=== PATIENT | female | born 1940 | race Caucasian/White ===

== ENCOUNTER 2016-10-26 15:09 | Outpatient (CLI) | payer OTHER | END 2016-10-26 15:10 | disposition home or self-care (01) | DX: I48.91 Unspecified atrial fibrillation (principal) ==

== ENCOUNTER 2016-11-29 15:06 | Outpatient (CLI) | payer OTHER | END 2016-11-29 15:07 | disposition home or self-care (01) | DX: I48.91 Unspecified atrial fibrillation (principal); I10 Essential (primary) hypertension ==

== ENCOUNTER 2016-12-06 15:24 | Outpatient (CLI) | payer OTHER | END 2016-12-06 15:25 | disposition home or self-care (01) | DX: I48.91 Unspecified atrial fibrillation (principal) ==

== ENCOUNTER 2016-12-21 15:49 | Outpatient (CLI) | payer OTHER | END 2016-12-21 23:59 | disposition home or self-care (01) | DX: I48.91 Unspecified atrial fibrillation (principal) ==

== ENCOUNTER 2017-01-17 14:33 | Outpatient (CLI) | payer OTHER | END 2017-01-17 14:34 | disposition home or self-care (01) | DX: I48.91 Unspecified atrial fibrillation (principal) ==

== ENCOUNTER 2017-01-21 14:15 | Outpatient (CLI) | payer OTHER | END 2017-01-21 14:16 | disposition home or self-care (01) | DX: M17.12 Unilateral primary osteoarthritis, left knee (principal) ==

== ENCOUNTER 2017-04-17 15:15 | Outpatient (CLI) | payer OTHER | END 2017-04-17 15:16 | disposition home or self-care (01) | LOC: LAB.F 15:15 | PROVIDERS: ATTEND Registered Nurse | DX: I48.91 Unspecified atrial fibrillation (principal) | CPT/HCPCS: 85610 ==

== ENCOUNTER 2017-05-01 14:41 | Outpatient (CLI) | payer OTHER | END 2017-05-01 14:42 | disposition home or self-care (01) | LOC: LAB.F 14:41 | PROVIDERS: ATTEND Registered Nurse | DX: I48.91 Unspecified atrial fibrillation (principal) | CPT/HCPCS: 85610 ==

== ENCOUNTER 2017-05-23 14:28 | Outpatient (CLI) | payer OTHER | END 2017-05-23 14:29 | disposition home or self-care (01) | LOC: LAB.F 14:28 | PROVIDERS: ATTEND Registered Nurse | DX: I48.91 Unspecified atrial fibrillation (principal) | CPT/HCPCS: 85610 ==

== ENCOUNTER 2017-05-31 13:52 | Outpatient (CLI) | payer OTHER | END 2017-05-31 13:53 | disposition home or self-care (01) | LOC: LAB.F 13:52 | PROVIDERS: ATTEND Registered Nurse | DX: I48.91 Unspecified atrial fibrillation (principal) | CPT/HCPCS: 85610 ==

== ENCOUNTER 2017-06-04 15:24 | Outpatient (CLI) | payer OTHER ==
--- NOTE | 2017-06-05 09:51 | XRAY Report ---
TWO VIEW CHEST: 06/04/2017 CLINICAL INDICATION: Chronic cough, new hemoptysis. COMPARISON: 07/03/2015. FINDINGS: Frontal and lateral views of the chest demonstrate a normal cardiac silhouette. The lungs are hyperinflated, with changes of old granulomatous disease. No focal consolidation, effusion, or pn eumothorax is evident. IMPRESSION: COPD. CHANGES OF OLD GRANULOMATOUS DISEASE. NO EVIDENCE OF ACUTE CARDIOPULMONARY DISEASE . JOB #: [id number] EXT JOB #:[id number]
== END 2017-06-04 15:25 | disposition home or self-care (01) ==
LOC: DI 15:24
PROVIDERS: ATTEND Registered Nurse
DX: J44.9 Chronic obstructive pulmonary disease, unspecified (principal)
CPT/HCPCS: 71020

== ENCOUNTER 2017-06-14 12:23 | Outpatient (CLI) | payer OTHER ==
[2017-06-14 12:30] LABS: CREATININE 0.9 mg/dL (0.4-1.0)
[2017-06-14] MEDS ORDERED: IOPAMIDOL-300 100 ML VIAL ONE (12:51)
[2017-06-14] MEDS ORDERED: IOPAMIDOL-300 100 ML VIAL IVP ONE ×2 (13:16)
--- NOTE | 2017-06-14 14:31 | CT Report ---
CT CHEST WITH CONTRAST: 06/14/2017 CLINICAL INDICATION: Hemoptysis, chronic cough, history of tobacco use. TECHNIQUE: Axial CT images of the chest were obtained with 80 mL of Isovue-300 intravenously. No pr evious CT is available for comparison. In accordance with CT protocol optimization, one or more of the following dose reduction techniques w ere utilized for this exam: automated exposure control, adjustment of mA and/or KV based on patient size, or use of iterative reconstructive technique. FINDINGS: The heart and great vessels demonstrate atherosclerotic calcifications. No hilar or media stinal lymphadenopathy is present. Calcified granulomas are noted. No noncalcified pulmonary nodule or mass lesion is appreciated. Emphysematous changes are present. No effusion or pneumothorax is s een. Osseous structures demonstrate degenerative changes. Limited evaluation of upper abdominal str uctures demonstrates normal adrenal glands. Renal cysts and left lumbar hernia are incidentally note d. IMPRESSION: EMPHYSEMA AND CHANGES OF OLD GRANULOMATOUS DISEASE. NO SUSPICIOUS PULMONARY NODULE OR M ASS LESION IS APPRECIATED. JOB #: [id number] EXT JOB #:[id number]
== END 2017-06-14 12:24 | disposition home or self-care (01) ==
LOC: LAB 12:23
PROVIDERS: ATTEND Registered Nurse
DX: J43.9 Emphysema, unspecified (principal)
CPT/HCPCS: 36415; 71260; 82565; 85610; Q9967

== ENCOUNTER 2017-07-17 14:19 | Outpatient (CLI) | payer OTHER | END 2017-07-17 14:20 | disposition home or self-care (01) | LOC: LAB.F 14:19 | PROVIDERS: ATTEND Registered Nurse | DX: I48.91 Unspecified atrial fibrillation (principal) | CPT/HCPCS: 85610 ==

== ENCOUNTER 2017-09-06 14:38 | Outpatient (CLI) | payer OTHER | END 2017-09-06 14:39 | disposition home or self-care (01) | LOC: LAB.F 14:38 | PROVIDERS: ATTEND Registered Nurse | DX: I48.91 Unspecified atrial fibrillation (principal) | CPT/HCPCS: 85610 ==

== ENCOUNTER 2017-10-30 14:37 | Outpatient (CLI) | payer OTHER | END 2017-10-30 14:38 | disposition home or self-care (01) | LOC: LAB.F 14:37 | PROVIDERS: ATTEND Registered Nurse | DX: I48.91 Unspecified atrial fibrillation (principal) | CPT/HCPCS: 85610 ==

== ENCOUNTER 2017-11-19 15:21 | Outpatient (CLI) | payer OTHER | END 2017-11-19 15:22 | disposition home or self-care (01) | LOC: LAB.F 15:21 | PROVIDERS: ATTEND Registered Nurse | DX: I48.91 Unspecified atrial fibrillation (principal) | CPT/HCPCS: 85610 ==

== ENCOUNTER 2017-12-27 15:39 | Outpatient (CLI) | payer OTHER | END 2017-12-27 15:40 | disposition home or self-care (01) | LOC: LAB.F 15:39 | PROVIDERS: ATTEND Registered Nurse | DX: I48.91 Unspecified atrial fibrillation (principal) | CPT/HCPCS: 85610 ==

== ENCOUNTER 2018-01-07 14:55 | Outpatient (CLI) | payer OTHER | END 2018-01-07 14:56 | disposition home or self-care (01) | LOC: LAB.F 14:55 | PROVIDERS: ATTEND Registered Nurse | DX: I48.91 Unspecified atrial fibrillation (principal) | CPT/HCPCS: 85610 ==

== ENCOUNTER 2018-01-15 14:35 | Outpatient (CLI) | payer OTHER | END 2018-01-15 14:36 | disposition home or self-care (01) | LOC: LAB.F 14:35 | PROVIDERS: ATTEND Registered Nurse | DX: I48.91 Unspecified atrial fibrillation (principal) | CPT/HCPCS: 85610 ==

== ENCOUNTER 2018-02-19 14:43 | Outpatient (CLI) | payer OTHER | END 2018-02-19 14:44 | disposition home or self-care (01) | LOC: LAB.F 14:43 | PROVIDERS: ATTEND Registered Nurse | DX: I48.91 Unspecified atrial fibrillation (principal) | CPT/HCPCS: 85610 ==

== ENCOUNTER 2018-04-01 13:48 | Outpatient (CLI) | payer OTHER | END 2018-04-01 13:49 | disposition home or self-care (01) | LOC: LAB.F 13:48 | PROVIDERS: ATTEND Registered Nurse | DX: I48.91 Unspecified atrial fibrillation (principal) | CPT/HCPCS: 85610 ==

== ENCOUNTER 2018-04-10 14:49 | Outpatient (CLI) | payer OTHER | END 2018-04-10 14:50 | disposition home or self-care (01) | LOC: LAB.F 14:49 | PROVIDERS: ATTEND Registered Nurse | DX: I48.91 Unspecified atrial fibrillation (principal) | CPT/HCPCS: 85610 ==

== ENCOUNTER 2018-05-14 14:32 | Outpatient (CLI) | payer OTHER ==
[2018-05-14 18:20] LABS: ALBUMIN 4.1 g/dL (3.2-5.5); ALBUMIN/GLOBULIN RATIO 1.3 (1.0-2.2); ALKALINE PHOSPHATASE 51 IU/L (42-121); ALT ALANINE AMINOTRANSFERASE 19 IU/L (10-60); AST ASPARTATE AMINOTRANSFERASE 26 IU/L (10-42); BILIRUBIN,TOTAL 0.5 mg/dL (0.2-1.0); BUN - BLOOD UREA NITROGEN 15 mg/dL (6-20); CARBON DIOXIDE - CO2 29 mmol/L (21-32); CHLORIDE 93 mmol/L (101-111); CHOL/HDL RATIO 2.2 (<4.4); CHOLESTEROL 175 mg/dL; GFR - MDRD 54 (>89); GLUCOSE 156 mg/dL (70-100); HDL CHOLESTEROL 79 mg/dL; LDL CHOLESTEROL,CALCULATED 65 mg/dL; LDL/HDL RATIO 0.8 (<4.4); SODIUM 129 mmol/L (135-145); TOTAL PROTEIN 7.3 g/dL (6.7-8.2); VLDL CHOLESTEROL 31 mg/dL
== END 2018-05-14 14:33 | disposition home or self-care (01) ==
LOC: LAB.F 14:32
PROVIDERS: ATTEND Registered Nurse
DX: I10 Essential (primary) hypertension (principal); E78.5 Hyperlipidemia, unspecified; R53.83 Other fatigue; I48.91 Unspecified atrial fibrillation
CPT/HCPCS: 36415; 80053; 80061; 83721; 84443; 85610

== ENCOUNTER 2018-06-12 14:37 | Outpatient (CLI) | payer OTHER | END 2018-06-12 14:38 | disposition home or self-care (01) | LOC: LAB.F 14:37 | PROVIDERS: ATTEND Registered Nurse | DX: I48.91 Unspecified atrial fibrillation (principal) | CPT/HCPCS: 85610 ==

== ENCOUNTER 2018-07-18 14:29 | Outpatient (CLI) | payer OTHER | END 2018-07-18 14:30 | disposition home or self-care (01) | LOC: LAB.F 14:29 | PROVIDERS: ATTEND Registered Nurse | DX: I48.91 Unspecified atrial fibrillation (principal) | CPT/HCPCS: 85610 ==

== ENCOUNTER 2018-08-26 14:31 | Outpatient (CLI) | payer OTHER | END 2018-08-26 14:32 | disposition home or self-care (01) | LOC: LAB.F 14:31 | PROVIDERS: ATTEND Registered Nurse | DX: I48.91 Unspecified atrial fibrillation (principal) | CPT/HCPCS: 85610 ==

== ENCOUNTER 2018-10-09 13:53 | Outpatient (CLI) | payer OTHER | END 2018-10-09 13:54 | disposition home or self-care (01) | LOC: LAB.F 13:53 | PROVIDERS: ATTEND Registered Nurse | DX: I48.91 Unspecified atrial fibrillation (principal) | CPT/HCPCS: 85610 ==

== ENCOUNTER 2018-10-15 14:07 | Outpatient (CLI) | payer OTHER | END 2018-10-15 14:08 | disposition home or self-care (01) | LOC: LAB.F 14:07 | PROVIDERS: ATTEND Registered Nurse | DX: I48.91 Unspecified atrial fibrillation (principal) | CPT/HCPCS: 85610 ==

== ENCOUNTER 2018-10-23 14:13 | Outpatient (CLI) | payer OTHER | END 2018-10-23 14:14 | disposition home or self-care (01) | LOC: LAB.F 14:13 | PROVIDERS: ATTEND Registered Nurse | DX: I48.91 Unspecified atrial fibrillation (principal) | CPT/HCPCS: 85610 ==

== ENCOUNTER 2018-11-20 13:18 | Outpatient (CLI) | payer OTHER | END 2018-11-20 13:19 | disposition home or self-care (01) | LOC: LAB.F 13:18 | PROVIDERS: ATTEND Registered Nurse | DX: I48.91 Unspecified atrial fibrillation (principal) | CPT/HCPCS: 85610 ==

== ENCOUNTER 2018-12-23 08:00 | Outpatient (CLI) | payer OTHER | END 2018-12-23 23:59 | disposition home or self-care (01) | LOC: LAB.F 08:00 | PROVIDERS: ATTEND Registered Nurse | DX: I48.91 Unspecified atrial fibrillation (principal) | CPT/HCPCS: 85610 ==

== ENCOUNTER 2019-01-23 14:48 | Outpatient (CLI) | payer OTHER | END 2019-01-23 14:49 | disposition home or self-care (01) | LOC: LAB.F 14:48 | PROVIDERS: ATTEND Registered Nurse | DX: I48.91 Unspecified atrial fibrillation (principal) | CPT/HCPCS: 85610 ==

== ENCOUNTER 2019-03-05 14:32 | Outpatient (CLI) | payer OTHER | END 2019-03-05 14:33 | disposition home or self-care (01) | LOC: LAB.F 14:32 | PROVIDERS: ATTEND Registered Nurse | DX: I48.91 Unspecified atrial fibrillation (principal) | CPT/HCPCS: 85610 ==

== ENCOUNTER 2019-04-20 14:56 | Outpatient (CLI) | payer OTHER | END 2019-04-20 14:57 | disposition home or self-care (01) | LOC: LAB.S 14:56 | PROVIDERS: ATTEND Registered Nurse | DX: I48.91 Unspecified atrial fibrillation (principal) | CPT/HCPCS: 85610 ==

== ENCOUNTER 2019-06-04 15:12 | Outpatient (CLI) | payer OTHER | END 2019-06-04 15:13 | disposition home or self-care (01) | LOC: LAB.S 15:12 | PROVIDERS: ATTEND Registered Nurse | DX: I48.91 Unspecified atrial fibrillation (principal) | CPT/HCPCS: 85610 ==

== ENCOUNTER 2019-07-15 15:09 | Outpatient (CLI) | payer OTHER | END 2019-07-15 15:10 | disposition home or self-care (01) | LOC: LAB.S 15:09 | PROVIDERS: ATTEND Registered Nurse | DX: I48.91 Unspecified atrial fibrillation (principal) | CPT/HCPCS: 85610 ==

== ENCOUNTER 2019-08-19 14:28 | Outpatient (CLI) | payer OTHER | END 2019-08-19 23:59 | disposition home or self-care (01) | LOC: LAB.S 14:28 | PROVIDERS: ATTEND Registered Nurse | DX: I48.91 Unspecified atrial fibrillation (principal) | CPT/HCPCS: 85610 ==

== ENCOUNTER 2019-09-17 09:04 | Outpatient (CLI) | payer OTHER | END 2019-09-17 09:05 | disposition home or self-care (01) | LOC: LAB 09:04 | PROVIDERS: ATTEND Registered Nurse | DX: I48.91 Unspecified atrial fibrillation (principal) | CPT/HCPCS: 85610 ==

== ENCOUNTER 2019-10-28 14:23 | Outpatient (CLI) | payer OTHER | END 2019-10-28 14:24 | disposition home or self-care (01) | LOC: LAB.S 14:23 | PROVIDERS: ATTEND Registered Nurse | DX: I48.91 Unspecified atrial fibrillation (principal) | CPT/HCPCS: 85610 ==

== ENCOUNTER 2019-11-20 14:15 | Outpatient (CLI) | payer OTHER | END 2019-11-20 14:16 | disposition home or self-care (01) | LOC: LAB 14:15 | PROVIDERS: ATTEND Registered Nurse | DX: I48.91 Unspecified atrial fibrillation (principal) | CPT/HCPCS: 85610 ==

== ENCOUNTER 2020-04-21 14:34 | Outpatient (CLI) | payer OTHER ==
[2020-04-21 19:51] LABS: PT - PROTHROMBIN TIME 22.2 secs (9.9-12.6)
== END 2020-04-21 14:35 | disposition home or self-care (01) ==
LOC: LAB.S 14:34
PROVIDERS: ATTEND Registered Nurse
DX: I48.91 Unspecified atrial fibrillation (principal)
CPT/HCPCS: 36415; 85610

== ENCOUNTER 2020-08-24 14:51 | Outpatient (CLI) | payer OTHER | END 2020-08-24 14:52 | disposition home or self-care (01) | LOC: LAB.S 14:51 | PROVIDERS: ATTEND Registered Nurse | DX: I48.91 Unspecified atrial fibrillation (principal) | CPT/HCPCS: 85610 ==

== ENCOUNTER 2020-10-04 14:24 | Outpatient (CLI) | payer OTHER | END 2020-10-04 14:25 | disposition home or self-care (01) | LOC: LAB.S 14:24 | PROVIDERS: ATTEND Registered Nurse | DX: I48.91 Unspecified atrial fibrillation (principal) | CPT/HCPCS: 85610 ==

== ENCOUNTER 2020-11-01 15:44 | Outpatient (CLI) | payer OTHER | END 2020-11-01 15:45 | disposition home or self-care (01) | LOC: LAB.S 15:44 | PROVIDERS: ATTEND Registered Nurse | DX: I48.91 Unspecified atrial fibrillation (principal) | CPT/HCPCS: 85610 ==

== ENCOUNTER 2020-11-09 15:00 | Outpatient (CLI) | payer OTHER | END 2020-11-09 15:01 | disposition home or self-care (01) | LOC: LAB.S 15:00 | PROVIDERS: ATTEND Registered Nurse | DX: I48.91 Unspecified atrial fibrillation (principal) | CPT/HCPCS: 85610 ==

== ENCOUNTER 2020-12-02 14:23 | Outpatient (CLI) | payer OTHER | END 2020-12-02 14:24 | disposition home or self-care (01) | LOC: LAB.S 14:23 | PROVIDERS: ATTEND Registered Nurse | DX: I48.91 Unspecified atrial fibrillation (principal) | CPT/HCPCS: 85610 ==

== ENCOUNTER 2020-12-15 15:08 | Outpatient (CLI) | payer MEDICARE, OTHER | END 2020-12-15 15:09 | disposition home or self-care (01) | LOC: LAB.S 15:08 | PROVIDERS: ATTEND Registered Nurse | DX: I48.91 Unspecified atrial fibrillation (principal) | CPT/HCPCS: 85610 ==

== ENCOUNTER 2021-02-05 15:16 | Outpatient (CLI) | payer MEDICARE | END 2021-02-05 15:17 | disposition home or self-care (01) | LOC: LAB.S 15:16 | PROVIDERS: ATTEND Registered Nurse | DX: I48.91 Unspecified atrial fibrillation (principal) | CPT/HCPCS: 36416; 85610 ==

== ENCOUNTER 2021-04-05 14:06 | Outpatient (CLI) | payer MEDICARE ==
[2021-04-05 20:08] LABS: BASOPHILS # (AUTO) 0.1 10^3/uL (0.0-0.1); BASOPHILS % (AUTO) 1.1 %; EOSINOPHILS # (AUTO) 0.1 10^3/uL (0.0-0.7); EOSINOPHILS % (AUTO) 0.7 %; HGB - HEMOGLOBIN 15.5 g/dL (12.0-16.0); LYMPHOCYTES # (AUTO) 2.1 10^3/uL (1.5-3.5); LYMPHOCYTES % (AUTO) 28.4 %; MEAN CORPUSCULAR HEMOGLOBIN 31.6 pg (27.0-31.0); MEAN CORPUSCULAR HGB CONC 33.7 g/dL (32.0-36.0); MEAN CORPUSCULAR VOLUME 93.9 fL (81.0-99.0); MEAN PLATELET VOLUME 9.8 fL (7.9-10.8); MONOCYTES # (AUTO) 0.7 10^3/uL (0.0-1.0); MONOCYTES % (AUTO) 10.1 %; NEUTROPHILS # (AUTO) 4.3 10^3/uL (1.5-6.6); NEUTROPHILS % (AUTO) 59.4 %; PLT - PLATELET COUNT 333 10^3/uL (130-450); RED CELL DISTRIBUTION WIDTH 11.9 % (12.0-15.0); WHITE BLOOD COUNT 7.3 x10^3/uL (4.8-10.8)
[2021-04-05 20:23] LABS: ALBUMIN 3.9 g/dL (3.2-5.5); ALBUMIN/GLOBULIN RATIO 1.3 (1.0-2.2); BILIRUBIN,TOTAL 0.9 mg/dL (0.2-1.0); CALCIUM 9.3 mg/dL (8.5-10.3); CREATININE 0.7 mg/dL (0.4-1.0); POTASSIUM 4.1 mmol/L (3.5-5.0)
[2021-04-05 20:39] LABS: ESTIMATED AVERAGE GLUCOSE 108 mg/dL (70-100); HEMOGLOBIN A1c% 5.4 % (4.27-6.07)
[2021-04-05 20:40] LABS: THYROID STIMULATING HORMONE 3.3 uIU/mL (0.34-5.60)
[2021-04-05 20:52] LABS: FOLATE 5.97 ng/mL (5.90 - >24.8)
[2021-04-08 17:42] LABS: ALBUMIN 3.8 g/dL (3.8-4.8); ALPHA 1 GLOBULIN 0.3 g/dL (0.2-0.3); ALPHA 2 GLOBULIN 0.9 g/dL (0.5-0.9); BETA 1 GLOBULIN 0.4 g/dL (0.4-0.6); BETA 2 GLOBULIN 0.3 g/dL (0.2-0.5); GAMMA GLOBULIN 0.9 g/dL (0.8-1.7)
== END 2021-04-05 14:07 | disposition home or self-care (01) ==
LOC: LAB.S 14:06
PROVIDERS: ATTEND Registered Nurse
DX: I48.91 Unspecified atrial fibrillation (principal); G60.9 Hereditary and idiopathic neuropathy, unspecified; F10.10 Alcohol abuse, uncomplicated; R63.0 Anorexia
CPT/HCPCS: 36415; 80053; 82150; 82607; 82746; 82977; 83036; 83690; 84155; 84165; 84443; 85025; 85610

== ENCOUNTER 2021-05-04 14:35 | Outpatient (CLI) | payer MEDICARE | END 2021-05-04 14:36 | disposition home or self-care (01) | LOC: LAB.S 14:35 | PROVIDERS: ATTEND Registered Nurse | DX: I48.91 Unspecified atrial fibrillation (principal) | CPT/HCPCS: 36416; 85610 ==

== ENCOUNTER 2021-05-15 15:15 | Outpatient (CLI) | payer MEDICARE | END 2021-05-15 15:16 | disposition home or self-care (01) | LOC: LAB.S 15:15 | PROVIDERS: ATTEND Family Medicine | DX: I48.91 Unspecified atrial fibrillation (principal) | CPT/HCPCS: 36416; 85610 ==

== ENCOUNTER 2021-06-22 14:33 | Outpatient (CLI) | payer MEDICARE | END 2021-06-22 14:34 | disposition home or self-care (01) | LOC: LAB.S 14:33 | PROVIDERS: ATTEND Registered Nurse | DX: I48.91 Unspecified atrial fibrillation (principal) | CPT/HCPCS: 36416; 85610 ==

== ENCOUNTER 2021-07-26 14:28 | Outpatient (CLI) | payer MEDICARE, OTHER | END 2021-07-26 14:29 | disposition home or self-care (01) | LOC: LAB.S 14:28 | PROVIDERS: ATTEND Registered Nurse | DX: I48.91 Unspecified atrial fibrillation (principal) | CPT/HCPCS: 36416; 85610 ==

== ENCOUNTER 2021-10-24 14:01 | Outpatient (CLI) | payer MEDICARE, OTHER | END 2021-10-24 14:02 | disposition home or self-care (01) | LOC: LAB.S 14:01 | PROVIDERS: ATTEND Registered Nurse | DX: I48.91 Unspecified atrial fibrillation (principal) | CPT/HCPCS: 36416; 85610 ==

== ENCOUNTER 2022-02-22 11:17 | Outpatient (CLI) | payer OTHER | END 2022-02-22 11:18 | disposition home or self-care (01) | LOC: LAB.S 11:17 | PROVIDERS: ATTEND Registered Nurse | DX: I48.91 Unspecified atrial fibrillation (principal) | CPT/HCPCS: 36416; 85610 ==

== ENCOUNTER 2023-03-22 01:22 | Outpatient (CLI) | payer OTHER | END 2023-03-22 23:59 | disposition critical access hospital (66) | LOC: EMS 01:22 | DX: S09.90XA Unspecified injury of head, initial encounter (principal); W18.39XA Other fall on same level, initial encounter; Y92.008 Other place in unspecified non-institutional (private) residence as the place of occurrence of the external cause | CPT/HCPCS: A0425; A0429 ==

== ENCOUNTER 2023-03-22 01:51 | Emergency (ER) | payer OTHER ==
--- NOTE | 2023-03-22 01:48 | ED Physician Documentation ---
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 She isn't certain what caused her to fall, but thinks it was due to loss of balance. She says she frequently falls and this is not new for her. She felt she was too weak to get back up (generalized weakness, mostly in legs, but symmetric) and thus the delay in getting to her phone to call 911. She was eventually able to crawl to the phone to call. FSBS by EMS 80, FAST exam negative by EMS. Patient had two glasses of wine at approximately 7 PM. She struck her head on side of the sink but denies LOC. She denies generalized headache but has pain focal to right parietotemperal scalp where she struck the sink. Her medications include warfarin (for atrial fibrillation). Denies neck pain. Review of Systems Eyes: denies: Loss of vision, Decreased vision Cardiac: reports: Reviewed and negative Respiratory: reports: Reviewed and negative GI: reports: Reviewed and negative Neurologic: reports: Generalized weakness, Head injury. denies: Focal weakness, Numbness, Headache, LOC PD PAST MEDICAL HISTORY - Past Medical History Past Medical History: Yes Cardiovascular: Hypertension, High cholesterol, Atrial fibrillation GI: GERD - Present Medications Home Medications: Ambulatory Orders Medication Instructions Recorded Confirmed Losartan [Cozaar] 100 mg PO DAILY 05/02/15 07/01/15 Lovastatin 40 mg PO DAILY 05/02/15 07/01/15 Metoprolol Succinate [Toprol Xl] 100 mg PO DAILY 05/02/15 07/01/15 Omeprazole [PriLOSEC] 20 mg PO DAILY 05/02/15 07/01/15 Aspirin [Adult Low Dose Aspirin EC] 81 mg PO DAILY 07/01/15 07/01/15 - Allergies Allergies/Adverse Reactions: Allergies Allergy/AdvReac Type Severity Reaction Status Date / Time hydrocodone AdvReac Intermediate Nausea Verified 03/22/23 02:01 PD ED PE NORMAL - Vitals Vital signs reviewed: Yes - General General: Alert and oriented X 3, No acute distress, Well developed/nourished, Other (cervical collar in place) - HEENT HEENT: PERRL, EOMI, Other (tacky mucous membranes) - Cardiac Cardiac: No murmur - Respiratory Respiratory: No respiratory distress, Clear bilaterally - Abdomen Abdomen: Soft, Non tender - Back Back: No spinal TTP - Extremities Extremities: No deformity, No tenderness to palpate, Normal ROM s pain - Neuro Neuro: Alert and oriented X 3, 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, No motor deficit, No sensory deficit, Normal speech Eye Opening: Spontaneous Motor: Obeys Commands Verbal: Oriented GCS Score: 15 PD ED PE EXPANDED - HEENT HEENT Visual: 1 - bruising, swelling, tenderness - Cardiac Cardiac: Irregularly irregular Results - Vitals Vitals: Vital Signs - 24 hr 03/22/23 03/22/23 03/22/23 01:55 04:01 06:00 Temperature 36.8 C Heart Rate 64 55 L 55 L Respiratory 16 18 16 Rate Blood Pressure 160/59 H 129/52 L 181/86 H O2 Saturation 96 96 98 Oxygen O2 Source [Without Activity] Room air O2 Source Room air - EKG (time done) No standard instances EKG releavant findings:: EKG personally interpreted by author of this note. Relevant findings are: Rate: Rate (enter#) (56) Rhythm: Atrial fibrillation Ada: Normal Ischemia: ST depression (V3-V6), Q waves (V1-V3) - Labs Labs: Laboratory Tests 03/22/23 03/22/23 03/22/23 01:57 01:57 01:57 WBC 6.2 RBC 3.88 L Hgb 12.9 Hct 37.5 MCV 96.6 MCH 33.2 H MCHC 34.4 RDW 11.9 L Plt Count 271 MPV 8.9 Neut # (Auto) 3.3 Lymph # (Auto) 2.1 Sherman # (Auto) 0.7 Eos # (Auto) 0.1 Baso # (Auto) 0.0 Absolute Nucleated RBC 0.00 Nucleated RBC % 0.0 PT 34.6 H INR 3.3 H Sodium 129 L Potassium 3.5 Chloride 93 L Carbon Dioxide 22 Anion Gap 14.0 H BUN 11 Creatinine 0.9 Estimated GFR (MDRD) 60 L Glucose 91 Calcium 8.0 L Total Bilirubin 0.6 AST 64 H ALT 32 Alkaline Phosphatase 54 Troponin I High Sens Total Protein 6.7 Albumin 3.5 Globulin 3.2 Albumin/Globulin Ratio 1.1 Lipase 31 Urine Color Urine Clarity Urine pH Ur Specific [place] Urine Protein Urine Glucose (UA) Urine Ketones Urine Occult Blood Urine Nitrite Urine Bilirubin Urine Urobilinogen Ur Leukocyte Esterase Ur Microscopic Review Urine Culture Comments 03/22/23 03/22/23 01:59 06:15 WBC RBC Hgb Hct MCV MCH MCHC RDW Plt Count MPV Neut # (Auto) Lymph # (Auto) Sherman # (Auto) Eos # (Auto) Baso # (Auto) Absolute Nucleated RBC Nucleated RBC % PT INR Sodium Potassium Chloride Carbon Dioxide Anion Gap BUN Creatinine Estimated GFR (MDRD) Glucose Calcium Total Bilirubin AST ALT Alkaline Phosphatase Troponin I High Sens 9.4 Total Protein Albumin Globulin Albumin/Globulin Ratio Lipase Urine Color LIGHT YELLOW Urine Clarity CLEAR Urine pH 6.0 Ur Specific [place] <=1.005 Urine Protein NEGATIVE Urine Glucose (UA) NEGATIVE Urine Ketones NEGATIVE Urine Occult Blood NEGATIVE Urine Nitrite NEGATIVE Urine Bilirubin NEGATIVE Urine Urobilinogen 0.2 (NORMAL) Ur Leukocyte Esterase NEGATIVE Ur Microscopic Review NOT INDICATED Urine Culture Comments NOT INDICATED - Rads (name of study) CTH Relevant Findings:: Prelim report reviewed, See rad report CT cervical spine Relevant Findings:: Prelim report reviewed, See rad report PD Medical Decision Making - ED course Complexity details: reviewed results, re-evaluated patient, considered differential, d/w patient ED course: Normal CBC, no concerning nor diagnostic findings on ER abdominal panel; mild hyponatremia (129), given 1 liter NS (for possible dehydration related to patient reporting she has had poor PO intake all day, but this intervention would likely also improve the sodium level). INR 3.3 and normal UA. Normal hs- cTn. CTH and CT cervical spine without acute findings (DJD, chronic , age- related changes). Results d/w patient, return precautions reviewed. She indicates to me that she has had minimal PO intake all day and thinks she might be dehydrated and thus given 1 liter NS. Subsequently, she was able to ambulate to and from bathroom twice with slow but steady gait. Departure - Departure Disposition: 01 Home, Self Care Clinical Impression: Fall Qualifiers: Encounter type: initial encounter Qualified Code(s): W19.XXXA - Unspecified fall, initial encounter Head contusion Qualifiers: Encounter type: initial encounter Contusion of head detail: scalp Qualified Code(s): S00.03XA - Contusion of scalp, initial encounter Condition: Good Instructions: ED Head Injury Closed Comments: There were no concerning or diagnostic findings on tonight's tests. The blood work shows you have a very mildly low sodium level; while a low sodium level can cause dizziness, it does not appear to be nearly low enough to explain any of your symptoms. The CT scans of your head and neck did not have any acute findings. There was some findings on the CT scan of your head that are expected with age. Similarly, there was a moderate amount of degenerative changes on the CT of the cervical spine, but, again, there were no acute findings such as fracture/break. The cause of your falls is something that you should speak to your primary care provider about. At this time, it is not clear what caused you to fall tonight. Discharge Date/Time: 03/22/23 06:55
[2023-03-22 02:04] LABS: BASOPHILS % (AUTO) 0.6 %; EOSINOPHILS # (AUTO) 0.1 10^3/uL (0.0-0.7); EOSINOPHILS % (AUTO) 1.1 %; HCT - HEMATOCRIT 37.5 % (37.0-47.0); HGB - HEMOGLOBIN 12.9 g/dL (12.0-16.0); LYMPHOCYTES # (AUTO) 2.1 10^3/uL (1.5-3.5); LYMPHOCYTES % (AUTO) 33.1 %; MEAN CORPUSCULAR HEMOGLOBIN 33.2 pg (27.0-31.0); MEAN CORPUSCULAR HGB CONC 34.4 g/dL (32.0-36.0); MEAN CORPUSCULAR VOLUME 96.6 fL (81.0-99.0); MEAN PLATELET VOLUME 8.9 fL (7.9-10.8); MONOCYTES # (AUTO) 0.7 10^3/uL (0.0-1.0); MONOCYTES % (AUTO) 11.6 %; NEUTROPHILS # (AUTO) 3.3 10^3/uL (1.5-6.6); NEUTROPHILS % (AUTO) 53.4 %; PLT - PLATELET COUNT 271 10^3/uL (130-450); RED BLOOD COUNT 3.88 10^6/uL (4.20-5.40); RED CELL DISTRIBUTION WIDTH 11.9 % (12.0-15.0); WHITE BLOOD COUNT 6.2 x10^3/uL (4.8-10.8)
[2023-03-22 02:17] LABS: ALBUMIN 3.5 g/dL (3.2-5.5); ALBUMIN/GLOBULIN RATIO 1.1 (1.0-2.2); BILIRUBIN,TOTAL 0.6 mg/dL (0.2-1.0); CREATININE 0.9 mg/dL (0.4-1.0); POTASSIUM 3.5 mmol/L (3.5-5.0); TOTAL PROTEIN 6.7 g/dL (6.7-8.2)
[2023-03-22 03:18] LABS: INR 3.3 (0.8-1.2); PT - PROTHROMBIN TIME 34.6 secs (9.9-12.6)
[2023-03-22] MEDS ORDERED: SODIUM CHLORIDE 0.9% 1,000 ML IV STA (04:26)
[2023-03-22 06:21] LABS: BILIRUBIN,URINE NEGATIVE (NEGATIVE); GLUCOSE, URINE (UA) NEGATIVE (NEGATIVE); KETONES,URINE (UA) NEGATIVE (NEGATIVE); LEUKOCYTE ESTERASE, URINE NEGATIVE (NEGATIVE); NITRITE,URINE NEGATIVE (NEGATIVE); OCCULT BLOOD,URINE NEGATIVE (NEGATIVE); PROTEIN,URINE NEGATIVE (NEGATIVE); UROBILINOGEN,URINE 0.2 (NORMAL) E.U./dL (NORMAL)
[2023-03-22 06:22] VITALS: BP 181/86
[2023-03-22 06:22] LABS: CLARITY,URINE CLEAR (CLEAR)
--- NOTE | 2023-03-22 08:42 | XRAY Report ---
PROCEDURE: Chest 1 View X-Ray INDICATIONS: chest pain TECHNIQUE: One view of the chest was acquired. COMPARISON: 06/04/2017 FINDINGS: Surgical changes and devices: None. Lungs and pleura: Suspected senescent lung markings and possible obstructive lung disease. No dense consolidation. No pleural effusion. A nodule in the right lower lung field is stable from 2017. Mediastinum: Heart size is at the upper limit of normal. Bones and chest wall: No suspicious bony lesions. Overlying soft tissues appear unremarkable. IMPRESSION: No acute radiographic abnormality. Agree with preliminary report. Reviewed by: Rod Ziegler MD on 03/22/2023 8:40 AM PDT Approved by: Rod Ziegler MD on 03/22/2023 8:40 AM PDT Station ID: [id number]
--- NOTE | 2023-03-22 08:45 | CT Report ---
PROCEDURE: HEAD WO INDICATIONS: fall, head injury, takes warfarin TECHNIQUE: Noncontrast 4.5 mm thick angled axial sections acquired from the foramen magnum to the vertex. For r adiation dose reduction, the following was used: automated exposure control, adjustment of mA and/or kV according to patient size. COMPARISON: Good FINDINGS: Image quality: Good CSF spaces: Basal cisterns are patent. Lateral ventricles are symmetric. Volume: Vascular calcifications. Periventricular white matter disease is commonly seen with chronic m icroangiopathy. Volume loss is present. These findings are moderate. Brain: No intracranial hemorrhage. [place]-white differentiation is grossly maintained. Mild encephalom alacia in the left parietal region. Craniofacial structures: Right scalp hematoma. No displaced fracture. Paranasal sinuses are unremarka ble. IMPRESSION: No acute intracranial abnormality. Small right scalp hematoma. Reviewed by: Rod Ziegler MD on 03/22/2023 8:44 AM PDT Approved by: Rod Ziegler MD on 03/22/2023 8:44 AM PDT Station ID: [id number]
--- NOTE | 2023-03-22 08:47 | CT Report ---
PROCEDURE: CERVICAL SPINE WO INDICATIONS: fall, head injury TECHNIQUE: Noncontrast 3 mm thick sections acquired from the skull base to the T4 level. Sagittal and coronal r eformats were then constructed. For radiation dose reduction, the following was used: automated exp osure control, adjustment of mA and/or kV according to patient size. COMPARISON: None. FINDINGS: Image quality: Good Bones: Mild to moderate degenerative changes. There is significant pannus around the C1/C2 articulati on. No traumatic subluxation. Vertebral body heights are generally well maintained. Soft tissues: Lung apex emphysematous changes. There are vascular calcifications. IMPRESSION: Degenerative changes. No acute fracture or traumatic subluxation. If there is high concern for furthe r derangement, consider MRI evaluation. Agree with preliminary report Reviewed by: Rod Ziegler MD on 03/22/2023 8:46 AM PDT Approved by: Rod Ziegler MD on 03/22/2023 8:46 AM PDT Station ID: [id number]
== END 2023-03-22 06:55 | disposition home or self-care (01) ==
LOC: EDUNIT# → ED 01:51
DX: S00.03XA Contusion of scalp, initial encounter (principal); W18.30XA Fall on same level, unspecified, initial encounter; Y93.01 Activity, walking, marching and hiking; Y92.009 Unspecified place in unspecified non-institutional (private) residence as the place of occurrence of the external cause; E87.1 Hypo-osmolality and hyponatremia
CPT/HCPCS: 36415; 80053; 81001; 81003; 83690; 84484; 85025; 85610; 87086; 93005; 96360; 96361; 99284

== ENCOUNTER 2023-06-13 13:58 | Outpatient (CLI) | payer MEDICARE, OTHER | END 2023-06-13 13:59 | disposition critical access hospital (66) | LOC: EMS 13:58 | DX: R53.1 Weakness (principal); R63.0 Anorexia | CPT/HCPCS: A0425; A0429 ==